=== PATIENT | female | born 1995 | race African-American/Black ===

== ENCOUNTER 2022-07-12 11:52 | Outpatient (CLI) | payer MEDICAID, SELFPAY | END 2022-07-12 11:53 | disposition home or self-care (01) | LOC: AMB 07-13 06:30 | PROVIDERS: Visit Provider Family Medicine | DX: I49.9 Cardiac arrhythmia, unspecified (principal) ==

== ENCOUNTER 2022-07-12 13:29 | Emergency (ER) | payer MEDICAID, SELFPAY ==
[2022-07-12 13:50] VITALS: BP 104/68; PULSE 114; RESP 20; TEMP 36.8; O2SAT 97; BMI 21.4
--- NOTE | 2022-07-12 14:42 | ED_ITS ---
HPI - General Adult General Time Seen by Provider: 14:42 Date Seen: 07/12/22 Chief complaint: Unspecified Complaint, Adult Stated complaint: Difficulty breathing, tingling in hands/feet Time Seen by Provider: 07/12/22 14:03 Source: patient and RN notes reviewed Mode of arrival: ambulatory Limitations: no limitations History of Present Illness HPI narrative: Patient is a 26-year-old female coming in with concern of anxiety and symptoms that happened earlier. Earlier today she had an episode where her hands and feet spasms. The person that is with her states that she could not get her shoes on. She felt like she was going to fall out of her body. She admits underlying anxiety. She did take ecstasy this morning trying to cope with some significant stressors in just get away for a while. She has a court appearance on Monday the . She states her 2 children ages 4 and 5 are in foster care currently which is significant stress on her. She is not been on medicine for anxiety, is interested in this. She wonders if on the the court will mandate some things for her. She is not went through therapy, has not done any cognitive behavioral treatments for her anxiety. We discussed anxiety disorders and panic attacks. We reviewed that the spasm in her hands with the proceeding numbness and tingling in her hands and feet likely was from hyperventilation and ensuing carpal pedal spasm. She is feeling better now. She admits that she has had 1 other use of ecstasy but denies other substances. She states she just felt terrible this morning with these feelings. She is more calm now in feeling better. Initially when I came in she was on the phone with a care worker, I briefly left to talk to another patient so she could finish up her phone call. Related Data Previous Rx's Medication Instructions Recorded hydroxyzine HCl 25 mg tablet 25 mg PO Q6-8H PRN #20 tabs 07/12/22 Allergies Allergy/AdvReac Type Severity Reaction Status Date / Time No Known Drug Allergies Allergy Verified 07/12/22 13:47 Review of Systems Status of ROS: Reports: 6 or more systems reviewed and unremarkable except as noted in History and below PFSH PFSH Social History Smoking Status: Never smoker How often do you have a drink containing alcohol: never How often do you have six or more drinks on one occasion: Never AUDIT-C Alcohol total score: 0 Non-prescribed substance use: club/senior visual [employer] drugs Non-prescribed substance use details: Ecstasy Exam Const: Vital Signs, click to edit/add: Vital Signs - 24 hr 07/12/22 13:50 07/12/22 14:43 Temperature 98.2 F Pulse Rate [Right Pulse Oximeter] 114 H 97 Respiratory Rate 20 Blood Pressure [Ri ght Upper Arm] 104/68 Pulse Oximetry 97 99 Oxygen Delivery Me thod Room Air Room Air Documenting provider has reviewed patient's vital signs: yes Common normals: no apparent distress, average body habitus, oriented x3, no limitations, healthy appearing, alert and well nourished General appearance: well kempt HENMT: Common normals: normocephalic, head/scalp atraumatic and hearing grossly normal bilaterally Head and scalp: normocephalic and atraumatic Eye: Common normals: PERRL, EOMs intact bilaterally, conjunctivae normal and no scleral icterus Conjunctiva: conjunctiva(e) normal Pupil: PERRL Neuro: Common normals: oriented x3 Sensorium/orientation: alert Psych: Common normals: mental status grossly normal, thought process normal, cooperative, affect normal, speech normal, activity/motor behavior normal, denies hallucinations, denies homicidal ideation and denies suicidal ideation Appearance: grossly normal and well kempt Attitude: calm and engaged Activity/motor behavior: appropriate eye contact Speech: normal speech Mood and affect: euthymic mood ( Not appearing anxious at this time.) Thought process: normal thought process Course Course Hospital Course: Will check with telehealth to see what time frame might be for them to talk to her. She is interested in outpatient treatments like therapy and counseling but is unsure what her outcome will be after her court date. Reevaluation(s) Reevaluation #1: Reviewed with her that will be certainly at least a couple hour wait for te [facility]. She would like to discharge home with prescription for Vistaril. She understands she is going to need more dedicated and directed management for anxiety which will need to happen outpatient. Time: 15:44 Vital Signs Vital signs: Initial Vital Signs Temperature 98.2 F 07/12/22 13:50 Temperature Source Temporal Artery Scan 07/12/22 13:50 Pulse Rate 114 H 07/12/22 13:50 Respiratory Rate 20 07/12/22 13:50 Blood Pressure 104/68 07/12/22 13:50 Blood Pressure Mean 80 07/12/22 13:50 Pulse Oximetry 97 07/12/22 13:50 Oxygen Delivery Method Room Air 07/12/22 13:50 Vital Signs Temperature 98.2 F 07/12/22 13:50 Pulse Rate 114 H 07/12/22 13:50 Respiratory Rate 20 07/12/22 13:50 Blood Pressure 104/68 07/12/22 13:50 Pulse Oximetry 97 07/12/22 13:50 Oxygen Delivery Method Room Air 07/12/22 13:50 Temperature 98.2 F 07/12/22 13:50 Pulse Rate 97 07/12/22 14:43 Respiratory Rate 20 07/12/22 13:50 Blood Pressure 104/68 07/12/22 13:50 Pulse Oximetry 99 07/12/22 14:43 Oxygen Delivery Method Room Air 07/12/22 14:43 Discharge Plan Discharge Clinical Impression: Carpopedal spasm, Anxiety, Panic attack Patient Disposition: Home, Self-Care Condition: Stable Instructions: Anxiety (ED), Panic Attack (ED) Additional Instructions: can try the Vistaril/ hydroxyzine for recurrent panic attacks. , be aware that it may take a while to work. You absolutely need to follow up in a clinic setting to get scheduled for counseling, consideration of cognitive behavioral therapy as well as consideration of medication management for anxiety. Activity Level: Activity as Tolerated Prescriptions: New hydroxyzine HCl 25 mg tablet 25 mg PO Q6-8H PRNQty: 20 0RF Follow Up/Referrals: Provider,Not a Local [Primary Care Provider] - Stand Alone Forms: [employer] Info Instructions
[2022-07-12 14:43] VITALS: PULSE 97; O2SAT 99
--- NOTE | 2022-07-12 16:03 | ED.NURSE ---
Written and verbal D/C per MD and RN. Friend at [facility] and supportive. Going over coping mechanisms that may be helpful-find a counselor. Pt states she is from [place] and knows a counselor that she could go to. Pt exponging on her kids are in [place] and she is going through custody battles. Ambulate out with stable gait with friend at .
== END 2022-07-12 16:05 | disposition home or self-care (01) ==
PROVIDERS: Emergency Provider Family Medicine
DX: R25.2 Cramp and spasm (principal); F41.0 Panic disorder [episodic paroxysmal anxiety]
CPT/HCPCS: 99283